=== PATIENT | male | born 1970 | race Caucasian/White ===

== ENCOUNTER 2018-08-14 12:13 | Observation (INO) | payer OTHER ==
[~2018-08-14] VITALS: Ht 154.9 cm; Wt 117.8 kg
[~2018-08-14 12:13] MED LIST: CYCL-259 PO; NAPR220C2 PO
[2018-08-14 13:04] LABS: BASOPHILS # (AUTO) 0.06 x10^3/uL (0-0.1); BASOPHILS % (AUTO) 1 % (0-1); EOSINOPHILS % (AUTO) 2 % (1-7); LYMPHOCYTES # (AUTO) 2.18 x10^3/uL (1-3.4); LYMPHOCYTES % (AUTO) 24 % (22-44); MD NO; MEAN CORPUSCULAR HEMOGLOBIN 30.9 pg (27.5-34.5); MEAN CORPUSCULAR VOLUME 90.7 fL (81-97); MEAN PLATELET VOLUME 7.9 fL (7.4-10.4); MONOCYTES # (AUTO) 0.81 x10^3/uL (0.2-0.8); MONOCYTES % (AUTO) 9 % (2-9); NEUTROPHILS % (AUTO) 65 % (42-75); PLATELET COUNT 217 x10^3/uL (130-400); RED CELL DISTRIBUTION WIDTH 13.5 % (9.4-14.8)
--- NOTE | 2018-08-14 13:04 | NUR ---
Pt presents to ED for dizziness and mild nausea starting 2 hours [employer]. Pt denies CP. NSR on monitor. VSS. NAD at this time.
[2018-08-14 13:06] LABS: ALANINE AMINOTRANSFERASE 36 U/L (12-78); ALBUMIN 4.3 g/dL (3.4-5.0); ANION GAP 5 mmol/L (5-15); CALCIUM 8.4 mg/dL (8.5-10.1); CHLORIDE 112 mmol/L (98-107); CREATININE 0.99 mg/dL (0.7-1.3)
[2018-08-14 13:12] LABS: ALKALINE PHOSPHATASE 47 U/L (45-117); BILIRUBIN,TOTAL 0.4 mg/dL (0.2-1.0); TOTAL PROTEIN 7.6 g/dL (6.4-8.2); TROPONIN I 0.021 ng/mL (0.000-0.045)
[2018-08-14 14:00] VITALS: BP 131/86
[2018-08-14] MEDS ORDERED: DOCUSATE 100 MG CAPSULE PO PRN (15:00)
[2018-08-14] MEDS ORDERED: TRAZODONE 50MG TABLET PO PRN (15:00)
[2018-08-14] MEDS ORDERED: BISACODYL 10 MG SUPP PR PRN (15:00)
[2018-08-14] MEDS ORDERED: hydrALAzine 20 MG/ML, 1ML IVPush PRN (15:00)
[2018-08-14] MEDS ORDERED: LABETALOL 5 MG/ML SYRINGE IVPush PRN (15:00)
[2018-08-14] MEDS ORDERED: POLYETHYLENE GLYCOL 17 GM PACKET PO PRN (15:00)
[2018-08-14] MEDS ORDERED: ENOXAPARIN 40 MG/0.4 ML SQ SCH (15:00)
[2018-08-14] MEDS ORDERED: ONDANSETRON ODT 4 MG PO PRN (15:00)
[2018-08-14] MEDS ORDERED: ACETAMINOPHEN 325 MG TABLET PO PRN (15:00)
[2018-08-14] MEDS ORDERED: ONDANSETRON 2MG/ML, 2ML IVPush PRN (15:00)
[2018-08-14 15:48] LABS: FREE T4 (FREE THYROXINE) 0.91 ng/dL (0.76-1.46)
[2018-08-14 15:54] LABS: THYROID STIMULATING HORMONE 0.691 mIU/L (0.358-3.740)
[2018-08-14 15:57] LABS: HEMOGLOBIN A1C 5.7 % (4.2-6.3)
[2018-08-14 16:03] LABS: INTERNATIONAL NORMALIZED RATIO 0.99 (0.93-1.1); PROTHROMBIN TIME 10.4 Seconds (9.6-11.5)
[2018-08-14] MEDS: LACTATED RINGERS 1,000 ML IV SCH (16:09)
[2018-08-14 19:47] VITALS: BP 113/71
[2018-08-14] MEDS: FAMOTIDINE 20 MG TABLET PO SCH (20:32)
[2018-08-14 21:39] LABS: TROPONIN I 0.024 ng/mL (0.000-0.045)
[2018-08-15 00:53] VITALS: BP 106/67
[2018-08-15] MEDS: LACTATED RINGERS 1,000 ML IV SCH ×2 (03:00→13:09)
[2018-08-15 06:00] LABS: BASOPHILS # (AUTO) 0.04 x10^3/uL (0-0.1); BASOPHILS % (AUTO) 1 % (0-1); EOSINOPHILS # (AUTO) 0.19 x10^3/uL (0-0.4); EOSINOPHILS % (AUTO) 3 % (1-7); LYMPHOCYTES # (AUTO) 2.11 x10^3/uL (1-3.4); LYMPHOCYTES % (AUTO) 29 % (22-44); MD NO; MEAN CORPUSCULAR HEMOGLOBIN 31.4 pg (27.5-34.5); MEAN CORPUSCULAR HGB CONC 34.6 g/dL (33.2-36.2); MEAN CORPUSCULAR VOLUME 90.8 fL (81-97); MEAN PLATELET VOLUME 7.7 fL (7.4-10.4); MONOCYTES # (AUTO) 0.69 x10^3/uL (0.2-0.8); MONOCYTES % (AUTO) 9 % (2-9); NEUTROPHILS # (AUTO) 4.33 x10^3/uL (1.8-6.8); NEUTROPHILS % (AUTO) 59 % (42-75); PLATELET COUNT 198 x10^3/uL (130-400); RED BLOOD COUNT 4.82 x10^6/uL (4.38-5.82); RED CELL DISTRIBUTION WIDTH 13.2 % (9.4-14.8)
[2018-08-15 06:14] LABS: CHLORIDE 110 mmol/L (98-107)
[2018-08-15 06:21] LABS: ANION GAP 4 mmol/L (5-15); CALCIUM 8.6 mg/dL (8.5-10.1); CREATININE 1.02 mg/dL (0.7-1.3); TRIGLYCERIDES 104 mg/dL (50-200)
[2018-08-15 06:22] LABS: CHOL/HDL RATIO 5.1; CHOLESTEROL, TOTAL 177 mg/dL (140-239); HDL CHOL % 20 % (26-37); HDL CHOLESTEROL (DIRECT) 35 mg/dL (40-60); LDL CHOLESTEROL,CALCULATED 121 mg/dL (54-169); LDL/HDL RATIO 3.5 (0.5-3.0); VLDL CHOLESTEROL 21 mg/dL (0-25)
[2018-08-15] MEDS: FAMOTIDINE 20 MG TABLET PO SCH (07:28)
[2018-08-15 07:42] VITALS: BP 126/83
[2018-08-15] MEDS ORDERED: REGADENOSON 0.4 MG/5 ML SYRINGE ONE (09:53)
[2018-08-15 13:09] VITALS: BP 138/85
[2018-08-15 13:10] VITALS: BP 142/91
[2018-08-15 13:11] VITALS: BP 123/80
== END 2018-08-15 14:56 | disposition home or self-care (01) ==
LOC: ED 13:35 → 5SO 13:36 → INTOOBSV 13:36 → ED 14:31 → DCLOUNGE 08-15 14:46
PROVIDERS: ADMIT Internal Medicine; ATTEND Internal Medicine
DX: R42 Dizziness and giddiness (principal); R07.89 Other chest pain; E86.0 Dehydration; Z82.49 Family history of ischemic heart disease and other diseases of the circulatory system; Z87.891 Personal history of nicotine dependence
CPT/HCPCS: 36415; 70470; 71046; 78452; 80048; 80053; 80061; 83036; 84439; 84443; 84484; 85025; 85379; 85610; 85651; 93005; 93017; 93306; 96360; 96361; 99284; A9502; C9898; G0378; J2785; J7120

== ENCOUNTER 2018-08-16 08:10 | Emergency (ER) | payer OTHER ==
[~2018-08-16] VITALS: Ht 170.2 cm; Wt 118.0 kg
--- NOTE | 2018-08-16 08:28 | NUR ---
CONTACT WITH PT, 48 YR OLD MALE HERE WITH C/O "DIZZY, N/V" "HE WAS SWEATING" "I KNOW ITS NOT MY HEART, I JUST GOT OUT OF HERE YESTERDAY" DIZZINESS WAS BETTER YESTERDAY FOR A LITTLE WHILE, NOW IT IS THE WORSE IT HAS EVER BEEN, "ITS CONSTANT, NON STOP, THE ROOM IS SPINNING. I GEOVANNI HAVE A PINCH IN MY RIGHT NECK AND DOWN MY SHOULDER. IT IS A CONSTANT DISCOMFORT HAS NEVER CAUSED DIZZINESS" PT PLACED ON MONITORS. PTS AT BEDSIDE.
--- NOTE | 2018-08-16 08:32 | NUR ---
ЕКАТЕРИНА PRICE AT BEDSIDE TO EVAL PT
[2018-08-16] MEDS ORDERED: DIAZEPAM 5 MG TABLET ONE (08:47)
[2018-08-16] MEDS ORDERED: MECLIZINE CHEWABLE 25 MG TAB ONE (08:47)
--- NOTE | 2018-08-16 08:52 | NUR ---
DR ALANIS AT BEDSIDE TO EVAL PT, CONT SR PER MONITOR.
[2018-08-16] MEDS ORDERED: SODIUM CHLORIDE FLUSH 10ML SYR IVF ONE (09:00)
[2018-08-16] MEDS ORDERED: MECLIZINE 25 MG TABLET PO ONE (09:00)
[2018-08-16] MEDS ORDERED: DIAZEPAM 5 MG TABLET PO ONE (09:00)
[2018-08-16] MEDS ORDERED: ONDANSETRON ODT 4 MG PO ONE (09:30)
[2018-08-16] MEDS ORDERED: ONDANSETRON ODT 4 MG ONE (09:47)
--- NOTE | 2018-08-16 09:48 | NUR ---
CT WAITING FOR IV ACCESS
--- NOTE | 2018-08-16 09:55 | NUR ---
PT WITH DIZZINESS 'BETTER" BUT STILL THERE. C/O NAUSEA. PT MEDICATED ORDERED. IV INSERTED FOR CT SCAN. CONT SR-SB PER MONITOR. NO NEEDS EXPRESSED AT THIS TIME.
--- NOTE | 2018-08-16 10:06 | NUR ---
PT TO CT VIA [facility].
[2018-08-16] MEDS ORDERED: OMNIPAQUE 350 MG/ML, 100ML BOTTLE ONE (10:19)
--- NOTE | 2018-08-16 11:15 | NUR ---
DR ALANIS AT BEDSIDE TO RE-EVAL PT.
--- NOTE | 2018-08-16 11:43 | NUR ---
NO SIG CHANGE IN PT CONDITION NOTED. PT WITHOUT NAUSEA, DECREASED "DIZZINESS" AT THIS TIME. IV DC'D WITH CANNULA INTACT. REVIEWED DC INSTRUCTIONS WITH PT, UNDERSTANDING VERBALIZED. PT LEFT AMB, GAIT SLOW AND STEADY.
[2018-08-16 11:44] VITALS: BP 112/73
== END 2018-08-16 11:46 | disposition home or self-care (01) ==
LOC: ED 08:40
DX: H81.399 Other peripheral vertigo, unspecified ear (principal); G89.29 Other chronic pain
CPT/HCPCS: 70496; 70498; 93005; 99284; Q0162; Q9967